=== PATIENT | female | born 1960 | race Caucasian/White ===

== ENCOUNTER → 2024-05-07 18:55 | Outpatient (REF) | payer MEDICARE, OTHER, SELFPAY | LOC: MRI 3T 18:55 | PROVIDERS: ATTENDING PHYSICIAN Family Medicine | DX: H93.12 Tinnitus, left ear (principal) | CPT/HCPCS: 70553; A9575 ==

== ENCOUNTER → 2024-11-18 11:19 | Outpatient (REF) | payer MEDICARE, OTHER, SELFPAY | LOC: HWRAD 11:19 | PROVIDERS: ATTENDING PHYSICIAN Otolaryngology Otolaryngology/Facial Plastic Surgery; FAMILY PHYSICIAN Family Medicine | DX: J32.9 Chronic sinusitis, unspecified (principal) | CPT/HCPCS: 70486 ==